=== PATIENT | female | born 1990 | race Caucasian/White ===

== ENCOUNTER 2023-03-01 21:41 | Outpatient (REF) | payer BC, SELFPAY ==
[2023-03-07 13:12] LABS: Age Gdln ACOG Testing Note (.); HPV Aptima Negative (Negative); IGP, Aptima HPV, rfx 16/18,45 Note (.)
== END 2023-03-01 21:42 | disposition home or self-care (01) ==
LOC: LAB 21:41
PROVIDERS: PCP Physician Assistant; Visit Provider Physician Assistant
DX: Z01.419 Encounter for gynecological examination (general) (routine) without abnormal findings (principal)
CPT/HCPCS: 87624; G0145

== ENCOUNTER 2025-01-09 16:34 | Outpatient (REF) | payer BC, SELFPAY ==
--- OUTSIDE RECORDS SUMMARY | 2025-01-09 10:00 | XMS_ITS | Encounter Summary ---
Author Organization [facility] Address [address] [place] [address] Care Team Providers Care Firer Diesel Locomotive Name Role Phone Unavailable Primary Care Provider Unavailabl e Reason for Visit * ReasonCommentsWell Women VisitPatient present for an annual and IUD removal. Encounter Details DateTypeDepartmentCare Team (Latest Contact Info)Fabcpvzjnwh96/20/2025 10:00 AM ESTProcedure Visit [facility] [address] [place] [id number] Melanie Varghese PA [address] [place] [address] Well woman exam with routine gynecological exam; Encounter for IUD removal Social History Tobacco UseTypesPacks/DayYears UsedDateSmoking Tobacco: NeverSmokeless Tobacco: NeverAlcohol UseStandard Drinks/WeekCommentsYes0 (1 standard drink = 0.6 oz pure alcohol)rarely, socialCommentsNoSex and Gender InformationValueDate RecordedSex Assigned at BirthNot on fileLegal FozSpcdoo81/15/2023 10:14 PM EDT Gender IdentityNot on fileSexual OrientationNot on filedocumented as of this encounter Last Filed Vital Signs Vital SignReadingTime TakenCommentsBlood Bnsrqijv292/7201/09/2025 9:56 AM EST Pulse--Temperature--Respiratory Rate--Oxygen Saturation--Inhaled Oxygen Concentration--Gvloci49 kg (141 lb 1.9 oz)01/09/2025 9:56 AM ESTHeight--Body Mass Index23.4801 10:05 AM ESTdocumented in this encounter Progress Notes * Mary Reed MA - 01/09/2025 10:00 AM EST Reason for Appointment: Patient ID: Stacy Mendes is a 34 y.o. female who presents for Well Women Visit Patient presents today for Annual Exam. MEDICATIONS Current Outpatient Medications Medication Instructions Levonorgestrel (Liletta, 52 MG,) 20.1 MCG/DAY intrauterine device as directed Intrauterine ALLERGIES Allergies Allergen Reactions Penicillin G Other Reaction(s): Unknown Penicillins Other PROBLEMS Active Ambulatory Problems Diagnosis Date Noted No Active Ambulatory Problems Resolved Ambulatory Problems Diagnosis Date Noted No Resolved Ambulatory Problems Past Medical History: Diagnosis Date Acne HISTORY PAST MEDICAL HISTORY SOCIAL HISTORY Past Medical History: Diagnosis Date Acne Social History Tobacco Use Smoking status: Never Smokeless tobacco: Never Substance Use Topics Alcohol use: Yes Comment: rarely, social Drug use: Defer FAMILY HISTORY No family history on file. SURGICAL HISTORY History reviewed. No pertinent surgical history. REVIEW OF SYSTEMS Review of Systems: Review of Systems All other systems reviewed and are negative. OBJECTIVE Objective: Physical Exam Constitutional: Appearance: Normal appearance. She is well-developed. Genitourinary: Vulva normal. Cardiovascular: Rate and Rhythm: Normal rate and regular rhythm. Pulmonary: Effort: Pulmonary effort is normal. Breath sounds: Normal breath sounds. Abdominal: General: Bowel sounds are normal. There is no distension. Palpations: Abdomen is soft. Tenderness: There is no abdominal tenderness. There is no guarding or rebound. Musculoskeletal: General: No swelling. Normal range of motion. Right lower leg: No edema. Left lower leg: No edema. Neurological: Mental Status: She is alert and oriented to person, place, and time. Skin: General: Skin is warm and dry. Psychiatric: Mood and Affect: Mood normal. Behavior: Behavior normal. Vitals and nursing note reviewed. Exam conducted with a automation qa tester present. Vitals: Estimated body mass index is 23.48 kg/m?? as calculated from the following: Height as of 03/01/23: 5' 5 . Weight as of this encounter: 141 lb 1.9 oz. BP: 110/72 No LMP recorded. (Menstrual status: IUD). Assessment/Plan ICD-10-CM 1. Well woman exam with routine gynecological exam Z01.419 Pap Smear HPV DNA probe, amplified 2. Encounter for IUD removal Z30.432 Assessment/Plan Annual Exam: Patient presents today for an annual exam. Patient states she is doing well and has no complaints. Pap was obtained without difficulty. Patient desires to have the IUD taken out at this visit. Pt does not want an IUD inserted her has a vasectomy and feels she does not need the IUD anymore. Melanie Varghese removed the IUD and advised pt if she considers getting the IUD inserted back in to just call the office and schedule w/Dr. Maguire. PVU. Orders Placed This Encounter Procedures HPV DNA probe, amplified Follow Up: Patient is to return in one year for annual unless needed otherwise. Documented by Mary Reed MA on behalf of: MELANI Barnett * MELANI Barnett - 01/09/2025 10:00 AM EST Reason for Appointment: Patient ID: Stacy Mendes is a 34 y.o. female who presents for Well Women Visit Patient presents today for Annual Exam. MEDICATIONS Current Outpatient Medications Medication Instructions Levonorgestrel (Liletta, 52 MG,) 20.1 MCG/DAY intrauterine device as directed Intrauterine ALLERGIES Allergies Allergen Reactions Penicillin G Other Reaction(s): Unknown Penicillins Other PROBLEMS Active Ambulatory Problems Diagnosis Date Noted No Active Ambulatory Problems Resolved Ambulatory Problems Diagnosis Date Noted No Resolved Ambulatory Problems Past Medical History: Diagnosis Date Acne HISTORY PAST MEDICAL HISTORY SOCIAL HISTORY Past Medical History: Diagnosis Date Acne Social History Tobacco Use Smoking status: Never Smokeless tobacco: Never Substance Use Topics Alcohol use: Yes Comment: rarely, social Drug use: Defer FAMILY HISTORY No family history on file. SURGICAL HISTORY History reviewed. No pertinent surgical history. REVIEW OF SYSTEMS Review of Systems: Review of Systems Constitutional: Negative. HENT: Negative. Eyes: Negative. Respiratory: Negative. Cardiovascular: Negative. Gastrointestinal: Negative. Genitourinary: Negative. Musculoskeletal: Negative. Skin: Negative. Neurological: Negative. All other systems reviewed and are negative. Hematological: Negative. Endocrine: Negative. Allergic/Immunologic: Negative. OBJECTIVE Objective: Physical Exam Constitutional: Appearance: Normal appearance. She is well-developed. Genitourinary: Vulva normal. Cardiovascular: Rate and Rhythm: Normal rate and regular rhythm. Pulmonary: Effort: Pulmonary effort is normal. Breath sounds: Normal breath sounds. Abdominal: General: Bowel sounds are normal. There is no distension. Palpations: Abdomen is soft. Tenderness: There is no abdominal tenderness. There is no guarding or rebound. Musculoskeletal: General: No swelling. Normal range of motion. Right lower leg: No edema. Left lower leg: No edema. Neurological: Mental Status: She is alert and oriented to person, place, and time. Skin: General: Skin is warm and dry. Psychiatric: Mood and Affect: Mood normal. Behavior: Behavior normal. Vitals and nursing note reviewed. Exam conducted with a automation qa tester present. Vitals: Estimated body mass index is 23.48 kg/m?? as calculated from the following: Height as of 03/01/23: 5' 5 . Weight as of this encounter: 141 lb 1.9 oz. BP: 110/72 No LMP recorded. (Menstrual status: IUD). ASSESSMENT & PLAN ICD-10-CM 1. Well woman exam with routine gynecological exam Z01.419 Pap Smear HPV DNA probe, amplified Orders Placed This Encounter Procedures HPV DNA probe, amplified Annual Wellness Exam: Patient presents today for routine annual exam. Patient states she has no current complaints. Patients vitals were reviewed and within normal limits. Growth and development is noted to be appropriate for age. Menstrual history is noted to be regular with concerns reported. No mental health concerns was expressed. Pap Smear: Speculum was inserted into the vagina and pap was obtained without difficulty. HPV testing was performed per age guideline. Patient was advised that pap results could take anywhere from 7 to 10 days to receive and our office will reach out to the patient with those once we have them. Patient can also view results via [employer]. I reinforced importance of condom use for STI prevention. Patient declined cultures to be performed with today's visit. Breast Exam: Upon examination, clinical breast exam was noted to be normal. Patient was counseled on breast self-awareness, including the importance of knowing what is normal for her own breasts and promptly reporting any changes such as new lumps, skin dimpling, nipple discharge, or pain. Screening mammogram recommended annually beginning at age 40 or earlier if risk factors are present. Discussed signs and symptoms of breast cancer and when to seek medical attention. Answered all patient questions. Contraceptive Counseling (if applicable): Patient is currently using IUD as a form of contraceptive. Patient does not desire control at this time. And requested IUD be removed IUD Removal: Patient presents today for removal of IUD. Written consent was obtained and patient was placed in dorsal lithotomy position with feet in stirrups. A sterile speculum was inserted into the vagina and the cervix was visualized. The IUD strings were grasped gently with forceps and the IUD was removed in its entirety without difficulty. The IUD was shown to the patient then properly discarded. Follow Up: Patient is to return to the office for annual exam unless needed otherwise Follow Up: Patient is to return to our office in one year for annual exam unless needed otherwise. Documented by MELANI Barnett on behalf of: MELANI Barnett documented in this encounter Plan of Treatment DateTypeDepartmentCare Team (Latest Contact Info)Owqfhipjjky64/23/2026 10:00 AM ESTProcedure Visit [facility] [address] [place] [phone] Neftali Maguire DO [address] [place] [address] NameTypePriorityAssociated DiagnosesOrder SchedulePap SmearPathology and CytologyRoutine Well woman exam with routine gynecological exam Ordered: 01/09/2025HPV DNA probe, amplifiedMicrobiologyRoutine Well woman exam with routine gynecological exam Ordered: 01/09/2025documented as of this encounter Procedures Procedure NamePriorityDate/TimeAssociated DiagnosisCommentsPAP TEST, EXTERNAL Kjdhicb9303/01/2023 12:00 AM ESTdocumented in this encounter Results * PAP TEST, EXTERNAL (03/01/2023 12:00 AM EST) Narrative Authorizing ProviderResult TypeResult StatusAmy Halima ERNANDEZ CYTOLOGY ORDERABLES Final ResultPerforming OrganizationAddressCity/State/ZIP CodePhone Number EXTERNAL LAB documented in this encounter Visit Diagnoses Diagnosis Well woman exam with routine gynecological exam Routine gynecological examination Encounter for IUD removal documented in this encounter
--- OUTSIDE RECORDS SUMMARY | 2025-01-09 16:36 | XMS_ITS | Encounter Summary ---
Author Organization [facility] Address [address] [place] [address] Care Team Providers Care Flue Blower Name Role Phone Unavailable Primary Care Provider Unavailabl e Encounter Details DateTypeDepartmentCare Team (Latest Contact Info)Inemlsxvscn88/20/2025amboo flowsheet AURELIANO WALKER [address] [address] Melanie Varghese PA [address] [place] [address] Social History Tobacco UseTypesPacks/DayYears UsedDateSmoking Tobacco: NeverSmokeless Tobacco: NeverAlcohol UseStandard Drinks/WeekCommentsYes0 (1 standard drink = 0.6 oz pure alcohol)rarely, socialCommentsNoSex and Gender InformationValueDate RecordedSex Assigned at BirthNot on fileLegal NopQeprhc75/15/2023 10:14 PM EDT Gender IdentityNot on fileSexual OrientationNot on filedocumented as of this encounter Plan of Treatment DateTypeDepartmentCare Team (Latest Contact Info)Qiklpcrasek37/23/2026 10:00 AM ESTProcedure Visit [facility] [address] [place] [address] Neftali Maguire DO [address] [place] [address] documented as of this encounter Visit Diagnoses Not on filedocumented in this encounter
--- OUTSIDE RECORDS SUMMARY | 2025-01-09 16:36 | XMS_ITS | Clinical Summary ---
Author Organization [facility] Address [address] [place] [address] Care Team Providers Care Glue Reel Operator Name Role Phone Unavailable Primary Care Provider Unavailabl e Allergies Active AllergyReactionsCriticalityNoted DateCommentsPenicillin G011/10/2022 Other Reaction(s): Unknown LicgocihzuxJszxp09/21/2023 Medications MedicationSigDispense QuantityRefillsLast FilledStart DateEnd DateStatus Levonorgestrel (Liletta, 52 MG,) 20.1 MCG/DAY intrauterine device as directed Uhaxpinaicjw19/20/2025Discontinued(Therapy completed) Active Problems No known active problems Encounters DateTypeDepartmentCare TsejYemlcbztilt56/20/2025 10:00 AM ESTProcedure Visit [facility] [address] [place] [address] Melanie Varghese PA Well woman exam with routine gynecological exam; Encounter for IUD uksojst6601/09/2025amboo flowsheet [facility] [address] [place] [address] Melanie Varghese PA from Last 3 Months Social History Tobacco UseTypesPacks/DayYears UsedDateSmoking Tobacco: NeverSmokeless Tobacco: Never Tobacco Cessation:Counseling Given: Not Answered Alcohol UseStandard Drinks/WeekCommentsYes0 (1 standard drink = 0.6 oz pure alcohol)rarely, socialCommentsNoSex and Gender InformationValueDate RecordedSex Assigned at BirthNot on fileLegal YkfPpqrcc14/15/2023 10:14 PM EDT Gender IdentityNot on fileSexual OrientationNot on file Last Filed Vital Signs Vital SignReadingTime TakenCommentsBlood Qpkzfbdf107/7211/ 9:56 AM EST Pulse--Temperature--Respiratory Rate--Oxygen Saturation--Inhaled Oxygen Concentration--Iehveo25 kg (141 lb 1.9 oz)01/09/2025 9:56 AM SSFFsevsf401.1 cm (5' 5 )03/01/2023 10:05 AM ESTBody Mass Index23.48003/01/2023 10:05 AM EST Plan of Treatment DateTypeDepartmentCare Team (Latest Contact Info)Rlyjoithmha76/23/2026 10:00 AM ESTProcedure Visit [facility] [address] [phone] Neftali Maguire DO [address] [place] [address] Health MaintenanceDue DateLast DoneCommentsHPV/Krtpst1209/10/2018COVID-19 Vaccine ( season)/, 1Cervical Cancer Screening 03/01/2026Pap Smear/11/2023Influenza ZtakvmrDmdtfryxs50/01/2025, 01/08/2024, 3Pneumococcal Vaccine: Pediatrics (0 to 5 Years) and At- Risk Patients (6 to 64 Years)Aged OutNo longer eligible based on patient's age to complete this topic Procedures Procedure NamePriorityDate/TimeAssociated DiagnosisCommentsPAP TEST, EXTERNAL Adopxmy5703/01/2023 12:00 AM ESTfrom Last 3 Months or Most Recently Relevant to Health Maintenance Results * PAP TEST, EXTERNAL (03/01/2023 12:00 AM EST) Narrative Authorizing ProviderResult TypeResult StatusAmy Halima ERNANDEZ CYTOLOGY ORDERABLES Final ResultPerforming OrganizationAddressCity/State/ZIP CodePhone Number EXTERNAL LAB from Last 3 Months or Most Recently Relevant to Health Maintenance Insurance
[2025-01-14 11:09] LABS: Age Gdln ACOG Testing Note (.); IGP, Aptima HPV, rfx 16/18,45 Note (.)
== END 2025-01-09 16:35 | disposition home or self-care (01) ==
LOC: LAB 16:34
PROVIDERS: Visit Provider Physician Assistant
DX: Z01.419 Encounter for gynecological examination (general) (routine) without abnormal findings (principal)
CPT/HCPCS: 87624; 88175